=== PATIENT | male | born 1935 | race Caucasian/White ===

== ENCOUNTER 2016-11-13 07:30 | Day surgery (SDC) | payer MEDICARE, OTHER ==
--- NOTE | ~2016-11-13 | EGD ---
EGD REPORT [facility] [address] [place] [address] NAME: SOBIA CROSS : 39 STATUS : REG [facility]#: [id number] AGE: 80 ADM/REG DATE : 11/13/16 MR#: [id number] REPORT SERV DATE: 11/13/16 DICTATED BY: KAY MALCOLM DATE: 11/13/16 REPORT STATUS : Draft [facility]ANS[facility]ED [facility]: [facility] DATE: 11/13/16 End[facility] Center Patient Name: Sobia Cross Date of : 1935 Attending MD: KAY MALCOLM MD Procedure Date No Time: 11/13/2016 Procedure: Colonoscopy Indications: High risk colon cancer surveillance: Personal history of colonic polyps, Last colonoscopy: June 2013 Referring MD: MARIANO MIN Medicines: See the Anesthesia note for documentation of the administered medications Complications: No immediate complications. Procedure: Pre-Anesthesia Assessment: - ASA Grade Assessment: III - A patient with severe systemic disease. After I obtained informed consent, the scope was passed under direct vision. Throughout the procedure, the patient's blood pressure, pulse, and oxygen saturations were monitored continuously. The CF [id number] was introduced through the anus and advanced to the cecum, identified by appendiceal orifice and ileocecal valve. The colonoscopy was performed without difficulty. The patient tolerated the procedure well. The quality of the bowel preparation was adequate. Findings: The perianal and digital rectal examinations were normal. Internal hemorrhoids were found during retroflexion and were small. Diverticula were found in the sigmoid colon, in the descending colon and in the ascending colon. A sessile polyp was found in the cecum. The polyp was small in size. The polyp was removed with a cold biopsy forceps. Resection and retrieval were complete. A sessile polyp was found in the descending colon. The polyp was small in size. The polyp was removed with a cold biopsy forceps. Resection and retrieval were complete. A sessile polyp was found in the sigmoid colon. The polyp was small in size. The polyp was removed with a cold biopsy forceps. Resection and retrieval were complete. Two sessile polyps were found in the recto-sigmoid colon. The polyps were small in size. These polyps were removed with a cold biopsy forceps. Resection and retrieval were complete. Distal rectal telangiectasias EGD REPORT [place] [id number] [facility] [place]. [address] NAME: SOBIA CROSS : 39 STATUS : REG [facility]#: [id number] AGE: 80 ADM/REG DATE : 11/13/16 MR#: [id number] REPORT SERV DATE: 11/13/16 DICTATED BY: KAY MALCOLM DATE: 11/13/16 REPORT STATUS : Draft TRANSCRIBED BY: [facility] DATE: 11/13/16 Impression: - Internal hemorrhoids. - Diverticulosis in the sigmoid colon, in the descending colon and in the ascending colon. - One small polyp in the cecum. Resected and retrieved. - One small polyp in the descending colon. Resected and retrieved. - One small polyp in the sigmoid colon. Resected and retrieved. - Two small polyps at the recto-sigmoid colon. Resected and retrieved. - Distal rectal telangiectasias Recommendation: - Patient has a contact number available for emergencies. The signs and symptoms of potential delayed complications were discussed with the patient. Return to normal activities tomorrow. Written discharge instructions were provided to the patient. - Regular diet. - Continue present medications. - Repeat colonoscopy for surveillance based on pathology results. - FOR YOUR BIOPSY RESULTS: Please go to [email or web address] and register to receive your results via the portal. Your biopsy results will be posted there in about 7 to 10 days. IF you do not see result in 10 days, call office. Procedure Code(s): --- Professional --- 45182, Colonoscopy, flexible, proximal to splenic flexure; with biopsy, single or multiple Diagnosis Code(s): --- Professional --- K64.8, Other hemorrhoids K57.30, Diverticulosis of large intestine without perforation or abscess without bleeding D12.7, Benign neoplasm of rectosigmoid junction D12.5, Benign neoplasm of sigmoid colon D12.4, Benign neoplasm of descending colon D12.0, Benign neoplasm of cecum Z86.010, Personal history of colonic polyps CPT copyright 2013 [employer]. All rights reserved. The codes documented in this report are preliminary and upon senior publications specialist review may be revised to meet current compliance requirements. EGD REPORT [facility] [address] [place] [address] NAME: SOBIA CROSS : 39 STATUS : REG [facility] PAT#: [id number] AGE: 80 ADM/REG DATE : 11/13/16 MR#: [id number] REPORT SERV DATE: 11/13/16 DICTATED BY: KAY MALCOLM DATE: 11/13/16 REPORT STATUS : Draft TRANSCRIBED BY: [facility] DATE: 11/13/16 Kay Malcolm MD KAY MALCOLM MD 11/13/2016 9:24 AM This report has been signed electronically. Number of Addenda: 0 Note Initiated On: 11/13/2016 8:59 AM Scope Withdrawal Time 0 hours 10 minutes 10 seconds [address] [place] [address]
[~2016-11-13 07:30] MED LIST: APRES10B PO; ASA5GR PO; ASABAYER PO; CALTRA600D PO; COREG3 PO; FLOMAX4 PO; FORTAMET500 MG PO; KLONO5 PO; KLOR-CON M2020 MEQ PO; L20 PO; LIPITOR80 MG PO; MAX25 PO; MAXIMUM D3 PO; PROLIA60 MG/1 ML SC; SYN.05 PO; UROXATRAL PO; Z300 PO; ZOCOR40 PO
== END 2016-11-13 23:59 | disposition home or self-care (01) ==
LOC: DMU 07:30
PROVIDERS: Internal Medicine Gastroenterology
PROC: 0DBN8ZZ Excision of Sigmoid Colon, Via Natural or Artificial Opening Endoscopic (ICD-10-PCS; 2016-11-13)
PROC: 0DBM8ZZ Excision of Descending Colon, Via Natural or Artificial Opening Endoscopic (ICD-10-PCS; 2016-11-13)
PROC: 0DBH8ZZ Excision of Cecum, Via Natural or Artificial Opening Endoscopic (ICD-10-PCS; principal; 2016-11-13 09:00)
DX: Z12.11 Encounter for screening for malignant neoplasm of colon (principal); D12.4 Benign neoplasm of descending colon; K64.8 Other hemorrhoids; K57.30 Diverticulosis of large intestine without perforation or abscess without bleeding; K63.5 Polyp of colon; E78.00 Pure hypercholesterolemia, unspecified; M19.90 Unspecified osteoarthritis, unspecified site; I10 Essential (primary) hypertension; G47.33 Obstructive sleep apnea (adult) (pediatric); G25.81 Restless legs syndrome; N47.1 Phimosis; E11.9 Type 2 diabetes mellitus without complications; Z98.890 Other specified postprocedural states; Z79.84 Long term (current) use of oral hypoglycemic drugs; Z86.73 Personal history of transient ischemic attack (TIA), and cerebral infarction without residual deficits; Z88.0 Allergy status to penicillin; Z88.8 Allergy status to other drugs, medicaments and biological substances; Z86.010 Personal history of colon polyps; Z95.1 Presence of aortocoronary bypass graft; Z98.41 Cataract extraction status, right eye; Z98.42 Cataract extraction status, left eye; M10.9 Gout, unspecified; Z90.79 Acquired absence of other genital organ(s); Z79.899 Other long term (current) drug therapy
CPT/HCPCS: 82962; 88305